=== PATIENT | male | born 1970 | race Caucasian/White ===

== ENCOUNTER → 2018-12-26 | Outpatient (CLI) | payer OTHER ==
--- NOTE | 2018-12-26 15:12 | REP ---
Clinical: Pain. Technique: AP and lateral views of the cervical spine. Findings: Straightening of normal lordosis is appreciated along with advanced degenerative disc osteophyte complex at C5-6 including endplate sclerosis, disc space narrowing, and osteophytosis. Moderate degenerative disc disease at C6-7 includes endplate sclerosis with subtle early spurring. No acute fracture / compression injury or subluxation. Impression: Focal moderate/advanced degenerative changes centered at C5-6. Electronically Signed by Layton Hernandez MD 12/26/2018 03:04 P
== END ==
LOC: M WUC 14:41
PROVIDERS: ATTEND Physician Assistant
DX: S16.1XXA Strain of muscle, fascia and tendon at neck level, initial encounter (principal); W18.30XA Fall on same level, unspecified, initial encounter; Y92.009 Unspecified place in unspecified non-institutional (private) residence as the place of occurrence of the external cause